=== PATIENT | female | born 1930 | race Caucasian/White ===

== ENCOUNTER → 2016-12-22 | Day surgery (SDC) | payer MEDICARE ==
[~2016-12-22] VITALS: Ht 165.1 cm; Wt 71.8 kg
[~2016-12-22] MED LIST: ASPIRIN325 MG PO; BUSPAR5 MG PO; CELEXA20 MG PO; DECADRON1 MG PO; HYDROGEN PEROX473 ML TOP; LIPITOR40 MG PO; NORVASC10 MG PO; OCEAN NASAL) (A44 ML NOSE; PERCOCET 5-3251 EACH PO; PRESERVISION A1 EAC2 PO; PRINIVIL (ZESTR20 MG PO; TYLENOL EXTRA500 MG PO; TYLENOL PM EX-1 EACH; TYLENOL WITH C1 EACH PO; VITAMIN D-32000 UNI1 PO; ZESTRIL40 MG PO; [UNRECOGNIZED DRUG - MIXTURE]
--- NOTE | ~2016-12-22 | OR ---
PATIENT'S NAME: TISH [facility] AGE: 86 Y [address] ROOM: [place] [id number] [place] [facility] [place]: 12/22/2016 OR/Procedure Report DISCHARGE DATE: FAMILY PHYSICIAN: Deborah Blake MD ATTENDING PHYSICIAN: Karl Wilson V SURGEON: Karl Wilson MD PRETZ[employer] TWISTING MACHINE OPERATOR: Duyen Faye PA-C DATE OF PROCEDURE: 12/22/2016 PREOPERATIVE DIAGNOSES: 1. 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 2. Squamous cell carcinoma of midline forehead. POSTOPERATIVE DIAGNOSES: 1. 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 2. Squamous cell carcinoma of midline forehead. OPERATION/PROCEDURE: 1. Right direct brow pexy. 2. Excision of 4.5 cm squamous cell carcinoma of midline forehead with complex closure. ANESTHESIA: Local with sedation. DESCRIPTION OF PROCEDURE: The patient was taken to the operating room, laid in supine position, and underwent IV sedation. Attention was then turned to the right brow as well as midline forehead. Supratrochlear nerve block was then performed using 1% lidocaine with epinephrine solution. Approximately a 3-cm horizontal incision was marked along the superior aspect of her brow, this was infiltrated with 1% lidocaine with epinephrine solution. The patient had a squamous cell carcinoma of midline forehead. A 4.5 x 1.5 cm skin ellipse was marked and infiltrated with 1% lidocaine with epinephrine solution. The patient's face was then prepped and draped in usual sterile fashion using Betadine solution. Attention was turned initially to the right brow. Approximately 3 cm curvilinear brow incision was then performed using #15 blade. Subcutaneous tissues divided using curved iris scissors, above the orbicularis oculi muscle. This was carried down to the periosteum. This elevated superiorly. Using a #5-0 Tycron sutures three sutures were placed through the muscle on the superior brow. This was then pulled superiorly to approximately half centimeter above her left superior brow. This was then tacked to the underlying periosteum x3. The patient had good position of her brow. Subcutaneous tissues approximated using interrupted 5-0 Vicryl suture and skin closure performed with interrupted 6-0 Ethilon. Attention was then turned to the midline forehead lesion. Approximately 4.5 x 2 cm elliptical skin incision performed with #15 blade. Subcutaneous tissues divided using PATIENT'S NAME: TISH MACARIO [facility] AGE: 86 Y [address] ROOM: [place] [id number] [place] [facility] [place]: 12/22/2016 OR/Procedure Report DISCHARGE DATE: FAMILY PHYSICIAN: Deborah Blake MD ATTENDING PHYSICIAN: Karl Wilson V #15 blade. This carried down to the frontalis muscle. Subcutaneous dissection was performed superiorly and inferiorly. Carried along the fascia of the frontalis extending over the periosteum superiorly. The subcutaneous tissues were approximated using interrupted 5-0 Vicryl suture. Skin closure performed using a running interlocking 6-0 Ethilon suture. The specimen was marked and sent for frozen section pathology. Frozen section pathology revealed all margins were free of disease. The patient was cleaned, Neosporin was applied. The patient was aroused and discharged from the operating room to recovery room in satisfactory condition KARL WILSON MD TVC/modl /[id number] d: 12/22/161810 t: 12/29/16 0727, OPERATIVE SUMMARY
[2016-12-22 08:44] LABS: BASOPHIL % 0.3 %; EOSINOPHIL # 0.1 K/uL (0.0-0.5); EOSINOPHIL % 1.4 %; HEMATOCRIT 31.3 % (30.0-46.0); HEMOGLOBIN 8.9 g/dL (10.0-15.0); IMMATURE GRANULOCYTE % 0.3 %; LYMPHOCYTE # 2.3 K/uL (0.8-4.0); LYMPHOCYTE % 26.1 %; MCH 20.8 pg (27.0-34.0); MCHC 28.4 gm/dL (32.0-36.5); MCV 73.3 fl (83.0-98.0); MONOCYTE # 0.8 K/uL (0.0-1.0); MONOCYTE % 9.5 %; MPV 8.8 fl (9.4-12.4); NEUTROPHIL # (ANC) 5.5 K/uL (1.8-7.8); NEUTROPHIL % 62.4 %; NRBC % 0 /100WBC (0-0.00); PLATELET COUNT 292 K/uL (150-450); RBC 4.27 M/uL (3.00-5.00); RDW-CV 16.3 % (11.9-14.6); WBC 8.7 K/uL (4.0-11.0)
[2016-12-22 08:51] LABS: PROTIME 10.8 SECONDS (9.6-11.1)
== END ==
LOC: GPOC 12-17 10:00 → GSDC 07:00
PROVIDERS: Otolaryngology
PROC: 0HB1XZZ Excision of Face Skin, External Approach (ICD-10-PCS; principal; 2016-12-22)
PROC: 0W020ZZ Alteration of Face, Open Approach (ICD-10-PCS; principal; 2016-12-22)
DX: L57.0 Actinic keratosis (principal); L90.5 Scar conditions and fibrosis of skin; C44.329 Squamous cell carcinoma of skin of other parts of face; L08.89 Other specified local infections of the skin and subcutaneous tissue; H02.401 Unspecified ptosis of right eyelid; H53.40 Unspecified visual field defects; I10 Essential (primary) hypertension; E78.5 Hyperlipidemia, unspecified; F32.9 Major depressive disorder, single episode, unspecified; Z86.73 Personal history of transient ischemic attack (TIA), and cerebral infarction without residual deficits
CPT/HCPCS: J0171; J1100; J2001; J2250; J2405; J7030